=== PATIENT | male | born 1960 | race Two or more races ===

== ENCOUNTER 2019-06-24 01:40 | Inpatient (IN) | payer SELFPAY ==
[2019-06-24] VITALS (14 sets, daily range): BP systolic 110–135; BP diastolic 45–99
[~2019-06-24] VITALS: Ht 157.5 cm; Wt 89.5 kg
[2019-06-24] MEDS ORDERED: insulin SQ (01:47)
[2019-06-24 02:51] LABS: BASOPHILS % (AUTO) 0.7 % (0.0-2.0); EOSINOPHILS % (AUTO) 1.1 % (1.0-6.0); HEMATOCRIT 47.6 % (41-53); HEMOGLOBIN 16.4 g/dL (13.5-17.5); LYMPHOCYTES # (AUTO) 2.9 K/uL (1.0-4.8); LYMPHOCYTES % (AUTO) 29.6 % (22.0-44.0); MEAN CORPUSCULAR HEMOGLOBIN 30.4 pg (26.0-34.0); MEAN CORPUSCULAR HGB CONC 34.3 G/dL (31.0-37.0); MEAN CORPUSCULAR VOLUME 89 fL (80-100); MONOCYTES # (AUTO) 0.7 K/uL (0.1-1.0); MONOCYTES % (AUTO) 7.3 % (2.0-9.0); NEUTROPHILS # (AUTO) 6.1 K/uL (1.8-7.7); NEUTROPHILS % (AUTO) 61.3 % (40.0-70.0); PLATELET COUNT (AUTO) 197 K/uL (150-450); RED BLOOD CELL COUNT(AUTO) 5.37 MIL/uL (4.50-5.90); RED CELL DISTRIBUTION WIDTH 13.2 % (11.5-14.5)
[2019-06-24 03:17] LABS: CALCIUM, TOTAL 9.4 mg/dL (8.8-10.5); CREATININE 1.27 mg/dL (0.60-1.30); POTASSIUM 3.2 mmol/L (3.5-5.1)
[2019-06-24 03:18] LABS: MAGNESIUM 1.8 mg/dL (1.80-2.40)
[2019-06-24 03:19] LABS: B-TYPE NATRIURETIC PEPTIDE 11 pg/mL (0-100)
[2019-06-24] MEDS ORDERED: SODIUM CHLORIDE 0.9% 100 ML ONE (03:23)
[2019-06-24] MEDS ORDERED: IOVERSOL 350 MG/ML 100 ML VIAL ONE (03:23)
[2019-06-24] MEDS ORDERED: PB/HYOSCY/ATR/SCOP/LIDO/MAALOX 55 ML BOTTLE PO ONE (03:30)
[2019-06-24] MEDS ORDERED: FAMOTIDINE 10 MG/ML 2 ML VIAL IVP ONE (03:30)
[2019-06-24 03:32] LABS: ALBUMIN 3.9 g/dL (3.4-5.0)
[2019-06-24 03:49] LABS: APPEARANCE,URINE CLEAR (CLEAR); BILIRUBIN,URINE NEGATIVE (NEGATIVE); GLUCOSE, URINE (UA) >=1000 mg/dL (NEGATIVE); KETONES,URINE 15 mg/dL (NEGATIVE); LEUKOCYTE ESTERASE ,URINE NEGATIVE (NEGATIVE); NITRATE,URINE NEGATIVE (NEGATIVE); OCCULT BLOOD,URINE TRACE (NEGATIVE); PH,URINE 5.5 (5.0-8.0); PROTEIN,URINE NEGATIVE (NEGATIVE); UROBILINOGEN,URINE 0.2 mg/dL (<=1.0)
[2019-06-24 03:55] LABS: AMPHET/METH SCREEN,URINE NEGATIVE (NEGATIVE); BARBITURATE SCREEN, URINE NEGATIVE (NEGATIVE); BENZODIAZEPINES SCREEN,URINE NEGATIVE (NEGATIVE); CANNABINOID SCREEN,URINE NEGATIVE (NEGATIVE); COCAINE SCREEN,URINE NEGATIVE (NEGATIVE); METHADONE SCREEN, URINE NEGATIVE (NEGATIVE); OPIATE SCREEN,URINE NEGATIVE (NEGATIVE)
[2019-06-24 03:58] LABS: BACTERIA,URINE None Seen /HPF (None Seen); SQUAMOUS EPITHELIAL CELL,UR Rare /LPF (None Seen); WBC,URINE 0-2 /HPF (0-5)
[2019-06-24 04:00] LABS: PHENCYCLIDINE SCREEN,URINE NEGATIVE (NEGATIVE)
[2019-06-24] MEDS ORDERED: ASPIRIN 325 MG TABLET PO ONE (04:00)
[2019-06-24] MEDS ORDERED: POTASSIUM CHLORIDE 20 MEQ ER TABLET PO ONE (04:45)
[2019-06-24] MEDS ORDERED: 0.9% SODIUM CHLORIDE 10 ML SYRINGE IVP PRN (04:45)
[2019-06-24] MEDS ORDERED: ONDANSETRON HCL 4 MG/2 ML VIAL IVP PRN ×2 (04:45→08:00)
[2019-06-24] MEDS ORDERED: ACETAMINOPHEN 325 MG TABLET PO PRN ×2 (04:45→08:00)
[2019-06-24 05:21] LABS: GLUCOSE,POINT OF CARE 303 MG/DL (70-110)
[2019-06-24 06:56] LABS: TOTAL PROTEIN, SERUM 7.9 g/dL (6.4-8.2)
[2019-06-24] MEDS ORDERED: MAGNESIUM OXIDE 400 MG TABLET PO PRN (08:00)
[2019-06-24] MEDS ORDERED: ZOLPIDEM TARTRATE 5 MG TABLET PO PRN (08:00)
[2019-06-24] MEDS ORDERED: POTASSIUM CHLORIDE 20 MEQ ER TABLET PO PRN (08:00)
[2019-06-24] MEDS ORDERED: MAGNESIUM SULFATE 2 GM/WATER 50 ML IV PRN (08:00)
[2019-06-24] MEDS ORDERED: MAGNESIUM SULFATE 4 GM/WATER 100 ML IV PRN (08:00)
[2019-06-24] MEDS ORDERED: POTASSIUM CHL 10 MEQ/WATER 50 ML IV PRN (08:00)
[2019-06-24] MEDS ORDERED: DEXTROSE 50%-WATER 25 GM/50 ML SYRINGE IVP PRN (08:00)
[2019-06-24] MEDS ORDERED: DOCUSATE SODIUM 100 MG CAPSULE PO SCH (09:00)
[2019-06-24] MEDS: PANTOPRAZOLE SODIUM 40 MG DR TABLET PO SCH (09:34)
[2019-06-24] MEDS: ENOXAPARIN SODIUM 40 MG/0.4 ML PF SYRINGE SQ SCH (09:35)
[2019-06-24] MEDS: SODIUM CHLORIDE 0.9% 1,000 ML IV SCH ×2 (09:35→18:00)
[2019-06-24 09:53] LABS: ALBUMIN 3.5 g/dL (3.4-5.0)
[2019-06-24 10:06] LABS: POTASSIUM 4.6 mmol/L (3.5-5.1)
[2019-06-24] MEDS: INSULIN GLARGINE,HUM.REC.ANLOG 100 UNITS/ML SQ SCH (10:10)
[2019-06-24] MEDS: INSULIN LISPRO 100 UNITS/ML SQ PRN ×4 (10:11→21:47)
[2019-06-24] MEDS ORDERED: DOCUSATE SODIUM 100 MG CAPSULE PO PRN (10:30)
[2019-06-24 11:31] LABS: GLUCOMETER DEV NAME(LOC) 5S.2A; GLUCOSE,POINT OF CARE 449 MG/DL (70-110)
[2019-06-24] MEDS ORDERED: TICAGRELOR 90 MG TABLET PO ONE ×2 (12:15→14:00)
[2019-06-24] MEDS ORDERED: SODIUM BICARBONATE 50 MEQ/50 ML VIAL ONE (12:16)
[2019-06-24] MEDS ORDERED: IOHEXOL 300 MG/ML 150 ML VIAL ONE (12:16)
[2019-06-24] MEDS ORDERED: LIDOCAINE/PF 1% 30 ML VIAL ONE (12:16)
[2019-06-24] MEDS ORDERED: HEPARIN SODIUM 1000 UNITS/NS 1,000 ML ONE (12:16)
[2019-06-24] MEDS: ATORVASTATIN CALCIUM 40 MG TABLET PO SCH (12:23)
[2019-06-24] MEDS ORDERED: MIDAZOLAM HCL 2 MG/2 ML VIAL ONE (12:56)
[2019-06-24] MEDS ORDERED: FentaNYL CITRATE-PF 100 MCG/2 ML VIAL ONE (12:56)
[2019-06-24] MEDS ORDERED: HEPARIN SODIUM 2,000 UNITS in HEPARIN SODIUM 1000 UNITS/NS 1,000 ML IARTER ONE (13:01)
[2019-06-24] MEDS ORDERED: IOHEXOL 300 MG/ML 50 ML VIAL ONE (13:09)
[2019-06-24] MEDS ORDERED: IOHEXOL 300 MG/ML 100 ML VIAL ONE (13:09)
[2019-06-24] MEDS ORDERED: HEPARIN SODIUM,PORCINE 5,000 UNITS/ML VIAL IVP ONE (13:15)
[2019-06-24] MEDS ORDERED: MIDAZOLAM HCL 2 MG/2 ML VIAL IVP ONE (13:15)
[2019-06-24] MEDS ORDERED: IOHEXOL 300 MG/ML 150 ML VIAL IARTER ONE (13:15)
[2019-06-24] MEDS ORDERED: IOHEXOL 300 MG/ML 100 ML VIAL IARTER ONE (13:15)
[2019-06-24] MEDS ORDERED: IOHEXOL 300 MG/ML 50 ML VIAL IARTER ONE (13:15)
[2019-06-24] MEDS ORDERED: LIDOCAINE 1% 30 ML/SOD BICARB 8.4% 4 ML SQ ONE (13:15)
[2019-06-24] MEDS ORDERED: FentaNYL CITRATE-PF 100 MCG/2 ML VIAL IVP ONE (13:15)
[2019-06-24 17:28] LABS: GLUCOMETER DEV NAME(LOC) 5S.1; GLUCOSE,POINT OF CARE 396 MG/DL (70-110)
[2019-06-24 19:51] LABS: GLUCOSE,POINT OF CARE 298 MG/DL (70-110)
[2019-06-24] MEDS ORDERED: LISINOPRIL 5 MG TABLET PO SCH (21:00)
[2019-06-25] VITALS: BP 101/53
[2019-06-25 00:08] LABS: GLUCOSE,POINT OF CARE 341 MG/DL (70-110)
[2019-06-25 04:00] VITALS: BP 95/66
[2019-06-25 05:58] LABS: EOSINOPHILS % (AUTO) 1.5 % (1.0-6.0); HEMOGLOBIN 14.7 g/dL (13.5-17.5); LYMPHOCYTES # (AUTO) 2.5 K/uL (1.0-4.8); LYMPHOCYTES % (AUTO) 30.6 % (22.0-44.0); MEAN CORPUSCULAR HEMOGLOBIN 30.6 pg (26.0-34.0); MEAN CORPUSCULAR HGB CONC 34.2 G/dL (31.0-37.0); MEAN CORPUSCULAR VOLUME 89 fL (80-100); MONOCYTES # (AUTO) 0.7 K/uL (0.1-1.0); MONOCYTES % (AUTO) 8.9 % (2.0-9.0); NEUTROPHILS # (AUTO) 4.7 K/uL (1.8-7.7); PLATELET COUNT (AUTO) 176 K/uL (150-450); RED BLOOD CELL COUNT(AUTO) 4.82 MIL/uL (4.50-5.90); RED CELL DISTRIBUTION WIDTH 12.9 % (11.5-14.5)
[2019-06-25 06:13] LABS: ANION GAP 9 mmol/L (8-16); CALCIUM, TOTAL 8.2 mg/dL (8.8-10.5); CARBON DIOXIDE 26 mmol/L (22-29); CHLORIDE 101 mmol/L (98-107); CREATININE 1.07 mg/dL (0.60-1.30); GLOMERULAR FILTR. RATE CALC > 60 mL/min (>60); GLUCOSE,RANDOM 290 mg/dL (70-110); POTASSIUM 3.5 mmol/L (3.5-5.1); SODIUM SERUM 136 mmol/L (136-145); UREA NITROGEN, BLOOD 14 mg/dL (7-18)
[2019-06-25] MEDS: ASPIRIN 81 MG CHEWABLE TABLET PO SCH ×3 (07:00→08:10)
[2019-06-25] MEDS: INSULIN LISPRO 100 UNITS/ML SQ PRN ×2 (07:12→11:30)
[2019-06-25] MEDS: ENOXAPARIN SODIUM 40 MG/0.4 ML PF SYRINGE SQ SCH (08:10)
[2019-06-25] MEDS: PANTOPRAZOLE SODIUM 40 MG DR TABLET PO SCH (08:11)
[2019-06-25] MEDS: SODIUM CHLORIDE 0.9% 1,000 ML IV SCH (08:12)
[2019-06-25] MEDS: ATORVASTATIN CALCIUM 40 MG TABLET PO SCH (08:12)
[2019-06-25] MEDS: INSULIN GLARGINE,HUM.REC.ANLOG 100 UNITS/ML SQ SCH (08:14)
[2019-06-25 08:41] LABS: GLUCOSE,POINT OF CARE 295 MG/DL (70-110)
[2019-06-25 08:54] VITALS: BP 105/70
[2019-06-25] MEDS ORDERED: CLOPIDOGREL BISULFATE 300 MG TABLET PO ONE (09:00)
[2019-06-25 11:05] VITALS: BP 119/77
[2019-06-25] MEDS ORDERED: CLOP75TA3 PO (14:05)
[2019-06-25] MEDS ORDERED: ATOR40TA28 PO (14:05)
[2019-06-25] MEDS ORDERED: LISI-660 PO (14:06)
[2019-06-25] MEDS ORDERED: ASPI-728 PO (14:06)
[2019-06-25 16:36] LABS: GLUCOMETER DEV NAME(LOC) 5S.1; GLUCOSE,POINT OF CARE 345 MG/DL (70-110)
[2019-06-26] MEDS ORDERED: CLOPIDOGREL BISULFATE 75 MG TABLET PO SCH (09:00)
== END 2019-06-25 14:40 | disposition home or self-care (01) | DRG 247 ==
LOC: EMS 01:41 → 5S 04:04 → ICU 14:10 → 5S 06-25 10:42
PROVIDERS: ADMIT Internal Medicine; ATTEND Internal Medicine
PROC: 4A023N7 Measurement of Cardiac Sampling and Pressure, Left Heart, Percutaneous Approach (ICD-10-PCS; principal; 2019-06-24)
PROC: 027034Z Dilation of Coronary Artery, One Artery with Drug-eluting Intraluminal Device, Percutaneous Approach (ICD-10-PCS; 2019-06-24)
PROC: B2151ZZ Fluoroscopy of Left Heart using Low Osmolar Contrast (ICD-10-PCS; 2019-06-24)
PROC: B2111ZZ Fluoroscopy of Multiple Coronary Arteries using Low Osmolar Contrast (ICD-10-PCS; 2019-06-24)
DX: I21.4 Non-ST elevation (NSTEMI) myocardial infarction (principal); I48.0 Paroxysmal atrial fibrillation; I49.3 Ventricular premature depolarization; K29.70 Gastritis, unspecified, without bleeding; K21.9 Gastro-esophageal reflux disease without esophagitis; E11.9 Type 2 diabetes mellitus without complications; E78.5 Hyperlipidemia, unspecified; I10 Essential (primary) hypertension; I25.10 Atherosclerotic heart disease of native coronary artery without angina pectoris; K57.30 Diverticulosis of large intestine without perforation or abscess without bleeding
CPT/HCPCS: 74177; 76705; 83036; 83735; 84132; 87081; 92920; 92928; 93005; 93306; G0378; G0480; J1644; J1650; J1815; J2250; J3010; J3475; J3490; J7030; J7050; Q9967